=== PATIENT | male | born 1995 | race Caucasian/White ===

== ENCOUNTER 2019-01-14 15:03 | Emergency (ER) | payer SELFPAY ==
[2019-01-14] MEDS ORDERED: oxyCODONE HCL 5 MG TABLET PO ONE (15:08)
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
[2019-01-14 15:17] VITALS: BP 112/80; PULSE 85; TEMP 98.1; BMI 53.8
[2019-01-14] MEDS ORDERED: oxyCODONE HCL 5 MG TABLET ONE (15:48)
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
== END 2019-01-14 16:28 | disposition home or self-care (01) ==
LOC: JER 15:03 → JERFT 15:03
DX: G89.18 Other acute postprocedural pain (principal)
CPT/HCPCS: 99281-25

== ENCOUNTER 2020-03-12 22:06 | Emergency (ER) | payer OTHER ==
[2020-03-12 22:10] VITALS: BP 121/66; PULSE 81; TEMP 98; BMI 21.6
--- NOTE | 2020-03-12 22:26 | PDOC ---
History of Present Illness - General Chief Complaint: Ear Problem Stated Complaint: EARACHE Time Seen by Provider: 03/12/20 22:13 - History of Present Illness Initial Comments: 03/12/20 22:24 24-year-old male with bilateral ear pain x4 days no comorbidities. He has discharge in both ears. No systemic symptoms. Past History - Medical History Allergies/Adverse Reactions: Allergies Allergy/AdvReac Type Severity Reaction Status Date / Time No Known Allergies Allergy Verified 03/12/20 22:10 Home Medications: Ambulatory Orders Ibuprofen 800 mg PO TID #30 tablet 01/14/19 Oxycodone HCl/Acetaminophen [Percocet 5-325 mg Tablet] 1 tab PO Q6H #12 tablet MDD 4 01/14/19 Polyethylene Glycol 3350 [Miralax (For Bowel Prep) -] 17 gm PO DAILY #1 bottle 01/14/19 Ciprofloxacin HCl/Dexameth [Ciprodex Otic Suspension] 4 drop OU BID 7 Days #1 bottle 03/12/20 CVA: No COPD: No CHF: No DVT: No Dementia: No - Psycho-Social/Smoking History Smoking History: Never smoked - Substance Abuse Hx (Audit-C & DAST Scrn) How often the patient has a drink containing alcohol: Never Score: In Men: 4 or > Positive; In Women: 3 or > Positive: 0 Screen Result (Pos requires Nsg. Audit-10AR): Negative Review of Systems - Review of Systems Constitutional: No: Fever HEENTM: Yes: Ear Pain *Physical Exam - Vital Signs Last Vital Signs Temp Pulse Resp BP Pulse Ox 98 F 81 18 121/66 98 03/12/20 22:08 03/12/20 22:08 03/12/20 22:08 03/12/20 22:08 03/12/20 22:08 - Physical Exam 03/12/20 22:24 GENERAL: The patient is awake, alert, and fully oriented, in no acute distress. HEAD: Normal with no signs of trauma. EYES: sclera anicteric, conjunctiva clear. ENT: Bilateral ear canals are erythemic swollen edematous with exudative purulent material ABDOMEN: Soft, nontender, normoactive bowel sounds. No guarding, no rebound. No masses. EXTREMITIES: Normal range of motion, no edema. No clubbing or cyanosis. No cords, erythema, or tenderness. NEUROLOGICAL: Cranial nerves II through XII grossly intact. PSYCH: Normal mood, normal affect. SKIN: Warm, Dry, normal turgor, no rashes or lesions noted. Medical Decision Making - Medical Decision Making 03/12/20 22:25 Ciprodex for otitis externa follow-up with ENT I have reviewed the pathophysiology with the patient. They are in agreement with the treatment plan all questions were answered to their satisfaction. Understanding for follow-up without fail was also conveyed to the patient. Again they are in agreement. Discharge - Discharge Information Problems reviewed: Yes Clinical Impression/Diagnosis: Otitis externa of both ears Condition: Stable Disposition: HOME - Admission No - Additional Discharge Information Prescriptions: Ciprofloxacin HCl/Dexameth [Ciprodex Otic Suspension] 4 drop OU BID 7 Days #1 bottle - Follow up/Referral Referrals: Nicola Smyth MD [Staff Physician] - - Patient Discharge Instructions Additional Instructions: Please take the antibiotic drops as directed and return to the emergency room for worsening symptoms. Without fail follow-up with ear nose and throat doctor in 1 to 2 days for further evaluation and treatment options. - Post Discharge Activity
== END 2020-03-12 22:30 | disposition home or self-care (01) ==
LOC: JERFT 22:06
DX: H60.93 Unspecified otitis externa, bilateral (principal)
CPT/HCPCS: 99282-25